=== PATIENT | female | born 1980 | race Hispanic/Latino ===

== ENCOUNTER 2017-05-30 08:15 | Emergency (ER) | payer MEDICAID, OTHER ==
[~2017-05-30 08:15] MED LIST: ACET1TAB12 PO; CEPH-578 PO; GLYB5TAB5 PO; METF500T3 PO
[2017-05-30 09:00] LABS: APPEARANCE,URINE Cloudy (CLEAR); BILIRUBIN,URINE Negative (NEGATIVE); COLOR,URINE Yellow (YELLOW); GLUCOSE, URINE (UA) >=1000 mg/dL (NEGATIVE); KETONES,URINE Negative (NEGATIVE); LEUKOCYTE ESTERASE ,URINE Negative (NEGATIVE); NITRATE,URINE Negative (NEGATIVE); OCCULT BLOOD,URINE Small (NEGATIVE); PH,URINE 5.5 (5.0-8.0); PROTEIN,URINE 300 (NEGATIVE); UROBILINOGEN,URINE 0.2 mg/dL (0.2-1.0)
[2017-05-30 09:02] LABS: HCG,QUAL RESULT NEGATIVE (NEGATIVE)
[2017-05-30 09:07] LABS: AMPHET/METH SCREEN,URINE NEGATIVE (NEGATIVE); BARBITURATE SCREEN, URINE NEGATIVE (NEGATIVE); BENZODIAZEPINES SCREEN,URINE NEGATIVE (NEGATIVE); CANNABINOID SCREEN,URINE NEGATIVE (NEGATIVE); COCAINE SCREEN,URINE NEGATIVE (NEGATIVE); OPIATE SCREEN,URINE NEGATIVE (NEGATIVE); PHENCYCLIDINE SCREEN,URINE NEGATIVE (NEGATIVE)
[2017-05-30 09:18] LABS: BACTERIA,URINE Rare /HPF (None Seen); SQUAMOUS EPITHELIAL CELL,UR Rare /HPF (0-2); WBC,URINE 0-1 /HPF (0-1)
[2017-05-30] MEDS ORDERED: SODIUM CHLORIDE 0.9% 1000ML 1,000 ML IV ONE ×2 (09:26→11:16)
[2017-05-30] MEDS ORDERED: INSULIN HUMULIN R 100 UNIT/ML 3ML ONE ×2 (09:27→11:17)
[2017-05-30 09:30] LABS: BASOPHILS % (AUTO) 0.5 % (0.0-5.0); EOSINOPHILS % (AUTO) 0.8 % (0.0-8.0); HEMATOCRIT 37.9 % (36-48); MEAN CORPUSCULAR HEMOGLOBIN 31.2 pg (27.0-33.0); MEAN CORPUSCULAR HGB CONC 36.1 g/dL (32.0-36.0); MEAN CORPUSCULAR VOLUME 86.5 fL (79-99); MONOCYTES % (AUTO) 6.2 % (3.0-13.0); NEUTROPHILS % (AUTO) 69.5 % (40.0-77.0); PLATELET COUNT (AUTO) 212 K/uL (130-400); RED BLOOD CELL COUNT(AUTO) 4.38 MIL/uL (4.00-5.50); RED CELL DISTRIBUTION WIDTH 12.8 % (11.0-15.5); WHITE BLOOD COUNT (AUTO) 9.6 K/uL (4.8-10.8)
[2017-05-30 09:58] LABS: ALBUMIN 3.4 g/dL (3.5-5.0); BILIRUBIN,TOTAL 0.7 mg/dL (0.2-1.0); CREATININE 1.4 mg/dL (0.5-1.5); POTASSIUM 4.3 mmol/L (3.5-5.1); TOTAL PROTEIN, SERUM 8.1 g/dL (6.0-8.3)
== END 2017-05-30 11:47 | disposition home or self-care (01) ==
LOC: EDH 08:15
DX: G40.802 Other epilepsy, not intractable, without status epilepticus (principal); E11.65 Type 2 diabetes mellitus with hyperglycemia; S00.83XA Contusion of other part of head, initial encounter; Z88.0 Allergy status to penicillin; Z79.899 Other long term (current) drug therapy; Z79.4 Long term (current) use of insulin; X58.XXXA Exposure to other specified factors, initial encounter; Y93.89 Activity, other specified; Y92.89 Other specified places as the place of occurrence of the external cause; Y99.8 Other external cause status
CPT/HCPCS: 36415; 80053; 80305; 81001; 81025; 82948 ×2; 85025; 96361; 96374; 96376; 99285; J1815 ×2; J7030 ×2

== ENCOUNTER 2017-07-27 14:32 | Emergency (ER) | payer OTHER ==
[2017-07-27 15:11] LABS: APPEARANCE,URINE Cloudy (CLEAR); BILIRUBIN,URINE Negative (NEGATIVE); COLOR,URINE Yellow (YELLOW); GLUCOSE, URINE (UA) >=1000 mg/dL (NEGATIVE); KETONES,URINE Negative (NEGATIVE); LEUKOCYTE ESTERASE ,URINE Small (NEGATIVE); NITRATE,URINE Negative (NEGATIVE); OCCULT BLOOD,URINE Small (NEGATIVE); PROTEIN,URINE POS 2+ (NEGATIVE); UROBILINOGEN,URINE 0.2 mg/dL (0.2-1.0)
[2017-07-27 15:14] LABS: HCG,QUAL RESULT NEGATIVE (NEGATIVE)
[2017-07-27 15:23] LABS: COARSE GRANULAR CASTS,URINE 0-2 /LPF (None Seen)
[2017-07-27 15:24] LABS: BACTERIA,URINE Few /HPF (None Seen); RBC,URINE None Seen /HPF (0-1)
== END 2017-07-27 15:53 | disposition home or self-care (01) ==
LOC: EDH 14:32
DX: B37.3 Candidiasis of vulva and vagina (principal); N39.0 Urinary tract infection, site not specified; E11.9 Type 2 diabetes mellitus without complications; Z88.0 Allergy status to penicillin; Z79.899 Other long term (current) drug therapy
CPT/HCPCS: 81001; 81025; 87486; 87797

== ENCOUNTER 2017-08-05 13:11 | Emergency (ER) | payer OTHER ==
[2017-08-05 13:43] LABS: BASOPHILS % (AUTO) 0.5 % (0.0-5.0); EOSINOPHILS % (AUTO) 0.3 % (0.0-8.0); HEMATOCRIT 33.9 % (36-48); LYMPHOCYTES % (AUTO) 14.6 % (21.0-51.0); MEAN CORPUSCULAR HEMOGLOBIN 29.6 pg (27.0-33.0); MEAN CORPUSCULAR HGB CONC 35.4 g/dL (32.0-36.0); MEAN CORPUSCULAR VOLUME 83.5 fL (79-99); MONOCYTES % (AUTO) 5.2 % (3.0-13.0); NEUTROPHILS % (AUTO) 79.4 % (40.0-77.0); PLATELET COUNT (AUTO) 230 K/uL (130-400); RED BLOOD CELL COUNT(AUTO) 4.05 MIL/uL (4.00-5.50); RED CELL DISTRIBUTION WIDTH 13.1 % (11.0-15.5); WHITE BLOOD COUNT (AUTO) 11.5 K/uL (4.8-10.8)
[2017-08-05 13:49] LABS: APPEARANCE,URINE Turbid (CLEAR); BILIRUBIN,URINE Negative (NEGATIVE); COLOR,URINE Yellow (YELLOW); GLUCOSE, URINE (UA) >=1000 mg/dL (NEGATIVE); KETONES,URINE Negative (NEGATIVE); LEUKOCYTE ESTERASE ,URINE Moderate (NEGATIVE); NITRATE,URINE Positive (NEGATIVE); OCCULT BLOOD,URINE Moderate (NEGATIVE); PH,URINE 5.5 (5.0-8.0); PROTEIN,URINE 300 (NEGATIVE)
[2017-08-05 13:56] LABS: HCG,QUAL RESULT NEGATIVE (NEGATIVE)
[2017-08-05 14:01] LABS: ALBUMIN 2.8 g/dL (3.5-5.0); BILIRUBIN,TOTAL 0.6 mg/dL (0.2-1.0); CREATININE 1.8 mg/dL (0.5-1.5); TOTAL PROTEIN, SERUM 7.2 g/dL (6.0-8.3)
[2017-08-05 14:06] LABS: BACTERIA,URINE Few /HPF (None Seen); WBC,URINE >100 /HPF (0-1)
[2017-08-05] MEDS ORDERED: SODIUM CHLORIDE 0.9% 50 ML IV ONE (14:19)
[2017-08-05] MEDS ORDERED: CEFTRIAXONE SODIUM 1 GM ONE (14:19)
[2017-08-05] MEDS ORDERED: SODIUM CHLORIDE 0.9% 1000ML 2,000 ML IV ONE (14:19)
[2017-08-05 14:42] LABS: AMPHET/METH SCREEN,URINE NEGATIVE (NEGATIVE); BARBITURATE SCREEN, URINE NEGATIVE (NEGATIVE); BENZODIAZEPINES SCREEN,URINE NEGATIVE (NEGATIVE); CANNABINOID SCREEN,URINE NEGATIVE (NEGATIVE); COCAINE SCREEN,URINE NEGATIVE (NEGATIVE); OPIATE SCREEN,URINE NEGATIVE (NEGATIVE); PHENCYCLIDINE SCREEN,URINE NEGATIVE (NEGATIVE)
[2017-08-05] MEDS ORDERED: ACETAMINOPHEN EXTRA STRENGTH 500 MG TABLET ONE (14:59)
[2017-08-05] MEDS ORDERED: ONDANSETRON HCL 4 MG/2 ML VIAL ONE (14:59)
[2017-08-05] MEDS ORDERED: HYDROXYZINE HCL 25 MG TABLET ONE (15:37)
== END 2017-08-05 16:26 | disposition left against medical advice (07) ==
LOC: EDH 13:11
DX: N12 Tubulo-interstitial nephritis, not specified as acute or chronic (principal); N28.9 Disorder of kidney and ureter, unspecified; E11.9 Type 2 diabetes mellitus without complications; R03.0 Elevated blood-pressure reading, without diagnosis of hypertension; F41.9 Anxiety disorder, unspecified; Z88.0 Allergy status to penicillin
CPT/HCPCS: 36415; 80053; 80305; 81001; 81025; 82948; 85025; 87088; 87186; 96374; 96375; 99285; J0696; J2405; J7030

== ENCOUNTER 2017-12-01 14:41 | Emergency (ER) | payer MEDICAID ==
[~2017-12-01 14:41] MED LIST changes: -ACET1TAB12 PO; +AMLO5TAB7 PO; -CEPH-578 PO; +HYDR25TA PO; +LEVE1000 PO; +LEVO100T12 PO; +NAPR-1023 PO
== END 2017-12-01 15:18 | disposition left against medical advice (07) ==
LOC: EDH 14:41
DX: R07.81 Pleurodynia (principal); F41.9 Anxiety disorder, unspecified; F32.9 Major depressive disorder, single episode, unspecified; I12.0 Hypertensive chronic kidney disease with stage 5 chronic kidney disease or end stage renal disease; E11.22 Type 2 diabetes mellitus with diabetic chronic kidney disease; N18.6 End stage renal disease; Z53.21 Procedure and treatment not carried out due to patient leaving prior to being seen by health care provider; Z88.0 Allergy status to penicillin; W18.39XA Other fall on same level, initial encounter; Y93.89 Activity, other specified; Y92.89 Other specified places as the place of occurrence of the external cause; Y99.8 Other external cause status

== ENCOUNTER 2018-06-29 10:30 | Day surgery (SDC) | payer MEDICAID ==
[2018-06-28 16:55] VITALS: BP 191/107
[2018-06-28 17:45] VITALS: BP 160/99
--- NOTE | 2018-06-28 17:45 | NUR ---
PAIN PT STATES SHE HAS PAIN SCALE OF 6 TO NEPHROSTOMY TUBE SITE, LEFT FLANK AREA. STATES SHE TAKE HYDROCODONE FOR IT. RECOMMENDED FOR PT TO SEEK MEDICAL ATTENTION SUCH E.R IF SEVERE OR SEE PCP. PER PT, SHE WILL ACTUALLY CALL DR. ANDERSEN RIGHT AFTER PREOP INSTRUCTED, MD WILL STILL BE IN OFFICE UNTIL 630.
[2018-06-28 17:50] LABS: BASOPHILS % (AUTO) 1.1 % (0.0-5.0); EOSINOPHILS % (AUTO) 2.2 % (0.0-8.0); HEMATOCRIT 27.3 % (36-48); LYMPHOCYTES % (AUTO) 24.5 % (21.0-51.0); MEAN CORPUSCULAR HEMOGLOBIN 26.7 pg (27.0-33.0); MEAN CORPUSCULAR HGB CONC 32.9 g/dL (32.0-36.0); MEAN CORPUSCULAR VOLUME 81.2 fL (79-99); MONOCYTES % (AUTO) 6.1 % (3.0-13.0); NEUTROPHILS % (AUTO) 66.1 % (40.0-77.0); PLATELET COUNT (AUTO) 327 K/uL (130-400); RED BLOOD CELL COUNT(AUTO) 3.36 MIL/uL (4.00-5.50); RED CELL DISTRIBUTION WIDTH 15.9 % (11.0-15.5); WHITE BLOOD COUNT (AUTO) 8.9 K/uL (4.8-10.8)
--- NOTE | 2018-06-28 18:30 | NUR ---
ABNORMAL LABS REPORTED ABNORMAL LABS TO DR. WEEKS BUN 52, CREAT 4.0, HGB 90., HCT 27.3. NO FURTHER ORDERS GIVEN, MAY PROCEED WITH PLANNED PROCEDURE. Addendum: 06/28/18 at 1850 by VICKY ROCHA RN RN ABOVE ABNORMAL LABS ALSO REPORTED TO DR. SCHROEDER, NO FURTHER ORDERS GIVEN.
[2018-06-29] VITALS (17 sets, daily range): BP systolic 124–184; BP diastolic 70–103
[~2018-06-29] VITALS: Ht 160 cm; Wt 87.6 kg
[~2018-06-29 10:30] MED LIST changes: -AMLO5TAB7 PO; +AMLO5TAB9 PO
[2018-06-29] MEDS ORDERED: SODIUM CHLORIDE 0.9% 1000ML 1,000 ML IV ONE (12:11)
[2018-06-29] MEDS ORDERED: LEVOFLOXACIN 500 MG/D5W 100 ML 100 ML ONE (12:27)
[2018-06-29] MEDS ORDERED: CEPH500C2 PO (12:30)
[2018-06-29] MEDS ORDERED: HYDR-4060 PO (12:30)
[2018-06-29] MEDS ORDERED: GABA-529 PO (12:30)
[2018-06-29] MEDS ORDERED: SODI325T PO (12:30)
[2018-06-29] MEDS ORDERED: INSU100V12 SQ ×2 (12:30)
[2018-06-29] MEDS ORDERED: FURO40TA5 PO (12:30)
[2018-06-29] MEDS ORDERED: LIDOCAINE PF 2% 5ML ABBOJECT ONE (13:40)
[2018-06-29] MEDS ORDERED: SUCCINYLCHOLINE 200MG/10ML SYR ONE (13:40)
[2018-06-29] MEDS ORDERED: PROPOFOL 10 MG/ML 20ML VIAL IV ONE (13:40)
[2018-06-29] MEDS ORDERED: DEXAMETHASONE SOD PHOSPHATE 10MG/ML 1ML VIAL ONE (13:41)
[2018-06-29] MEDS ORDERED: GLYCOPYRROLATE 1 MG/5 ML SYRINGE ONE (13:41)
[2018-06-29] MEDS ORDERED: MIDAZOLAM HCL 1 MG/ML 2ML VIAL ONE (13:41)
[2018-06-29] MEDS ORDERED: ROCURONIUM 10MG/1ML SYR 10 MG/ML ML ONE (13:41)
[2018-06-29] MEDS ORDERED: NEOSTIGMINE 5MG/5ML SYR IV ONE (13:41)
[2018-06-29] MEDS ORDERED: ONDANSETRON HCL 4 MG/2 ML VIAL ONE (13:41)
[2018-06-29] MEDS ORDERED: FENTANYL CITRATE PF 50 MCG/1 ML 2ML VIAL ONE ×2 (13:43→15:01)
[2018-06-29] MEDS ORDERED: BACITRACIN 50,000 UNIT VIAL ONE (14:16)
[2018-06-29] MEDS ORDERED: BACITRACIN 28.4 GM OINT TP ONE (14:27)
[2018-06-29] MEDS ORDERED: MORPHINE SULFATE 4 MG/1ML SYG ONE (15:14)
[2018-06-29] MEDS ORDERED: MEPERIDINE-PF 25 MG/ML SYG ONE (15:28)
--- NOTE | 2018-06-29 15:55 | NUR ---
POST OP RECEIVED PT FROM PACU, S/P I&D TO RIGHT GROIN ABSCESS, DRESSING TO SITE DRY AND INTACT, LEFT NEPHROSTOMY TUBE IN PLACE DRAINING CLEAR YELLOW URINE, DRESSING TO SITE DRY AND INTACT, PT AWAKE AND ALERT, VS STABLE ON ARRIVAL. PLAN OF CARE DISCUSS WITH PT/ SPOUSE,
--- NOTE | 2018-06-29 16:25 | NUR ---
DC DC INSTRUCTIONS GIVEN TO PT SPOUSE WITH RX, INSTRUCTED TO F/U WITH MD. TO CONTINUE HOME MEDS, AND REMOVE DRESSING TO RIGHT GROIN IN 2 DAYS AND APPLY ANTIBIOTIC OINTMENT TO INCISION DAILY, INSTRUCTED ON NEW MED PRESCRIBED AND POSSIBLE SIDE EFFECTS. PIV REMOVED , SITE ASYMPTOMATIC, CATHETER INTACT.
--- NOTE | 2018-06-29 16:40 | NUR ---
dc pt dc home via wc, no distress noted. denies any pain or discomforts. accompanied by spouse
[2018-06-30] MEDS ORDERED: LEVOFLOXACIN 500 MG/D5W 100 ML 100 ML IV ONE (12:45)
== END 2018-06-29 16:40 | disposition home or self-care (01) ==
LOC: DAH 10:30
PROVIDERS: ATTEND Surgery
DX: L02.214 Cutaneous abscess of groin (principal); E65 Localized adiposity; G40.909 Epilepsy, unspecified, not intractable, without status epilepticus; E66.9 Obesity, unspecified; I12.9 Hypertensive chronic kidney disease with stage 1 through stage 4 chronic kidney disease, or unspecified chronic kidney disease; E11.22 Type 2 diabetes mellitus with diabetic chronic kidney disease; N18.2 Chronic kidney disease, stage 2 (mild); Z68.36 Body mass index [BMI] 36.0-36.9, adult; Z88.0 Allergy status to penicillin; Z79.4 Long term (current) use of insulin; Z79.899 Other long term (current) drug therapy
CPT/HCPCS: 10060; 17999; 36415; 80048; 82948 ×2; 84703; 85025; 87070; 87076; 87077; 87186; 87205; 88304; A4452; A4600; J0330; J1100; J1956; J2001; J2175; J2250; J2270; J2405; J2704; J2710; J3010 ×2; J3490; J7030

== ENCOUNTER 2019-05-23 15:25 | Inpatient (IN) | payer MEDICARE ==
[~2019-05-23] VITALS: Ht 160 cm; Wt 85.9 kg
[~2019-05-23 15:25] MED LIST changes: -AMLO5TAB9 PO; +CEPH500C2 PO; +FURO40TA5 PO; +GABA-529 PO; -GLYB5TAB5 PO; +HYDR-4060 PO; -HYDR25TA PO; +INSU100V12 SQ; -LEVE1000 PO; -LEVO100T12 PO; -METF500T3 PO; -NAPR-1023 PO; +SODI325T PO
[2019-05-23] MEDS ORDERED: MEROPENEM 1 GM VIAL ONE (16:31)
[2019-05-23 16:32] LABS: BASOPHILS % (AUTO) 0.4 % (0.0-5.0); EOSINOPHILS % (AUTO) 0.4 % (0.0-8.0); HEMATOCRIT 32.6 % (36-48); MEAN CORPUSCULAR HEMOGLOBIN 28.2 pg (27.0-33.0); MEAN CORPUSCULAR HGB CONC 33.1 g/dL (32.0-36.0); MEAN CORPUSCULAR VOLUME 85.1 fL (79-99); MONOCYTES % (AUTO) 11.9 % (3.0-13.0); NEUTROPHILS % (AUTO) 70.4 % (40.0-77.0); NUCLEATED RED BLOOD CELLS 0.7 % (0.0-0.19); PLATELET COUNT (AUTO) 236 K/uL (130-400); RED BLOOD CELL COUNT(AUTO) 3.83 MIL/uL (4.00-5.50); RED CELL DISTRIBUTION WIDTH 15.7 % (11.0-15.5); WHITE BLOOD COUNT (AUTO) 18.3 K/uL (4.8-10.8)
[2019-05-23] MEDS ORDERED: MORPHINE SULFATE 4 MG/1ML SYG ONE (16:32)
[2019-05-23] MEDS ORDERED: ONDANSETRON HCL 4 MG/2 ML VIAL ONE (16:32)
[2019-05-23 16:45] LABS: PARTIAL THROMBOPLASTIN TIME 33.8 SEC (26.3-35.5)
[2019-05-23 16:58] LABS: ALBUMIN 2.5 g/dL (3.5-5.0); BILIRUBIN,TOTAL 2.2 mg/dL (0.2-1.0); CREATININE 4.8 mg/dL (0.5-1.5); INR 1.5 (0.85-1.15); PROTHROMBIN TIME 15.9 SEC (9.6-11.6); TOTAL PROTEIN, SERUM 7.7 g/dL (6.0-8.3); TROPONIN I 0.33 ng/mL (0.00-0.06)
[2019-05-23] MEDS ORDERED: VANCOMYCIN 1GM+NS 250ML 250 ML IV ONE (16:59)
[2019-05-23] MEDS ORDERED: ONDANSETRON HCL 4 MG/2 ML VIAL IV PRN (19:15)
[2019-05-23] MEDS ORDERED: MORPHINE SULFATE 2 MG/ML 1ML SYG IVP PRN (19:30)
[2019-05-23] MEDS ORDERED: VANCOMYCIN PROTOCOL PER PHARMACY IV SCH (19:30)
[2019-05-23] MEDS: MEROPENEM 1 GM VIAL IVP SCH (19:30)
[2019-05-23] MEDS ORDERED: GLUCAGON 1MG KIT 1 MG ML IM PRN (19:45)
[2019-05-23] MEDS ORDERED: DEXTROSE 50%-WATER 50 ML DISP.SYRIN IV PRN (19:45)
[2019-05-23] MEDS: INSULIN HUMULIN R 100 UNIT/ML 3ML SQ SCH (21:00)
[2019-05-23] MEDS ORDERED: FAMOTIDINE/PF 20 MG/2 ML VIAL IV ONE (22:01)
[2019-05-23] MEDS: HEPARIN SODIUM 5000UNIT/ML 1ML VIAL SQ SCH (22:15)
[2019-05-24] VITALS (7 sets, daily range): BP systolic 129–183; BP diastolic 63–109
[2019-05-24 03:49] LABS: APPEARANCE,URINE TURBID (CLEAR); BILIRUBIN,URINE SMALL (NEGATIVE); COLOR,URINE GREEN (YELLOW); GLUCOSE, URINE (UA) 100 mg/dL (NEGATIVE); KETONES,URINE NEGATIVE (NEGATIVE); LEUKOCYTE ESTERASE ,URINE MODERATE (NEGATIVE); NITRATE,URINE NEGATIVE (NEGATIVE); OCCULT BLOOD,URINE MODERATE (NEGATIVE); PH,URINE 6.5 (5.0-8.0); PROTEIN,URINE >=300 mg/dL (NEGATIVE); UROBILINOGEN,URINE 0.2 mg/dL (0.2-1.0)
[2019-05-24 04:07] LABS: BACTERIA,URINE Many /HPF (None Seen); WBC,URINE Full Field /HPF (0-1)
[2019-05-24] MEDS ORDERED: HYDROMORPHONE HCL 2 MG/ML VIAL ONE (04:10)
[2019-05-24] MEDS: INSULIN HUMULIN R 100 UNIT/ML 3ML SQ SCH ×4 (06:07→20:38)
[2019-05-24 06:44] LABS: BASOPHILS % (AUTO) 0.4 % (0.0-5.0); EOSINOPHILS % (AUTO) 1.7 % (0.0-8.0); HEMATOCRIT 35.4 % (36-48); LYMPHOCYTES % (AUTO) 15.9 % (21.0-51.0); MEAN CORPUSCULAR HEMOGLOBIN 27.3 pg (27.0-33.0); MEAN CORPUSCULAR HGB CONC 31.4 g/dL (32.0-36.0); MONOCYTES % (AUTO) 10.1 % (3.0-13.0); NEUTROPHILS % (AUTO) 70.6 % (40.0-77.0); NUCLEATED RED BLOOD CELLS 0.7 % (0.0-0.19); PLATELET COUNT (AUTO) 215 K/uL (130-400); RED BLOOD CELL COUNT(AUTO) 4.07 MIL/uL (4.00-5.50); RED CELL DISTRIBUTION WIDTH 16.4 % (11.0-15.5)
[2019-05-24 07:12] LABS: ALBUMIN 2.3 g/dL (3.5-5.0); BILIRUBIN,DIRECT 1.5 mg/dL (0.0-0.3); BILIRUBIN,TOTAL 2.1 mg/dL (0.2-1.0); CREATININE 4.7 mg/dL (0.5-1.5); POTASSIUM 3.3 mmol/L (3.5-5.1); TOTAL PROTEIN, SERUM 7.5 g/dL (6.0-8.3); TROPONIN I 0.17 ng/mL (0.00-0.06)
[2019-05-24 07:41] LABS: HEMOGLOBIN A1C 7.5 % (4.0-6.0)
--- NOTE | 2019-05-24 09:55 | NUR ---
PT BEING DIALYZED CONSENT OBTAINED.
[2019-05-24] MEDS ORDERED: SODIUM CHLORIDE 0.9% 1000ML 1,000 ML IV PRN (10:00)
[2019-05-24] MEDS ORDERED: ACETAMINOPHEN 325 MG TAB PO PRN (10:00)
[2019-05-24] MEDS ORDERED: 0.9% SODIUM CHLORIDE 1000 ML IV BAG IV PRN (10:00)
[2019-05-24] MEDS ORDERED: HEPARIN SODIUM 5000UNIT/ML 1ML VIAL IJ PRN ×2 (10:00)
[2019-05-24] MEDS ORDERED: NITROGLYCERIN 0.4 MG SL TAB SL PRN (10:00)
[2019-05-24] MEDS: HYDRALAZINE HCL 20 MG/ML VIAL IV PRN (11:28)
[2019-05-24] MEDS: FAMOTIDINE/PF 20 MG/2 ML VIAL IV SCH (11:33)
[2019-05-24] MEDS: MEROPENEM 1 GM VIAL IVP SCH ×2 (11:33→20:50)
--- NOTE | 2019-05-24 12:05 | NUR ---
CALLED DR. EVANS LEFT VOICEMAIL RE; LEFT NECROTIC FOOT/ CELLULITIS.
--- NOTE | 2019-05-24 13:00 | NUR ---
DR. EVANS CALLED BACK ORDERS ENTERED
[2019-05-24] MEDS: HYDROMORPHONE HCL 2 MG/ML VIAL IVP PRN ×2 (13:24→14:45)
--- NOTE | 2019-05-24 13:30 | NUR ---
DR. CARLOTA ROSS PAGED RE; IF INTERESTED IN TAKING CASE. SINCE HE WAS CONS[place] [facility] [place]FORE [place]IENT LEFT AMA. PENDING CALL BACK.
--- NOTE | 2019-05-24 13:35 | NUR ---
DR. TORRES PAGED RE; PT REFUSING TX PAGED, PENDING CALL BACK.
[2019-05-24] MEDS: HEPARIN SODIUM 5000UNIT/ML 1ML VIAL SQ SCH ×2 (14:55→20:51)
--- NOTE | 2019-05-24 15:53 | NUR ---
INITIAL SW spoke with patient's mother, Chata Rosenthal, [phone]. Patient lives with mother. No home health but does have PHC with [facility] X 21 hours a week. Patient's sister is provider. Dialysis: MWF at 2pm at [facility]. DME: wheelchair, walker, shower chair. Patient needs help with ADL's and does not drive. Sister help with transportation to and from dialysis and MD appts. PCP is Dr. Misael Chirinos. Pharmacy is [facility] [address] in [place]. DCP is home. Addendum: 05/24/19 at 1556 by KIN APARICIO Amended: Links added.
--- NOTE | 2019-05-24 17:30 | NUR ---
TEMP OF 101.4, DR. SEPULVEDA AWARE B/C X2. ORDERED.
--- NOTE | 2019-05-24 18:00 | NUR ---
DR. VAN CALLED BACK ORDERS ENTERED. STATES IF PATIENT REFUSES CT ANGIO OF [place]IT[place] LOWER EXTRE. IF REFUSES I WILL NOT SEE PT.
--- NOTE | 2019-05-24 19:30 | NUR ---
SPOKE TO EXTERMINATOR HELPER REGARDING LDR NURSE ORDER FOR CT ANGIOGRAM TO BLE. PER EXTERMINATOR HELPER, RADIOLOGIST STATES THAT SHOULD BE PREFORMED WITHIN 24 PRIOR TO NEXT SCHEDULED HD. PT NEXT HD DATE IS MONDAY. DR. ROSS PAGED AT THIS TIME. WAITING FOR CALL BACK.
[2019-05-24] MEDS: KETOROLAC TROMETHAMINE 15MG/ML IV PRN (21:06)
[2019-05-25] MEDS: KETOROLAC TROMETHAMINE 15MG/ML IV PRN ×3 (03:12→21:47)
[2019-05-25 03:55] VITALS: BP 149/72
[2019-05-25] MEDS: INSULIN HUMULIN R 100 UNIT/ML 3ML SQ SCH ×4 (06:57→21:00)
[2019-05-25 08:00] VITALS: BP 169/101
[2019-05-25 08:10] LABS: HEPATITIS A ANTIBODY IGM Negative (Negative); HEPATITIS B CORE IGM Negative (Negative); HEPATITIS Bs ANTIGEN SCREEN P Negative (Negative)
[2019-05-25] MEDS: HYDRALAZINE HCL 20 MG/ML VIAL IV PRN (09:03)
[2019-05-25] MEDS: FAMOTIDINE/PF 20 MG/2 ML VIAL IV SCH (09:03)
[2019-05-25] MEDS: MEROPENEM 1 GM VIAL IVP SCH ×2 (09:03→21:01)
[2019-05-25 11:00] VITALS: BP 178/97
[2019-05-25] MEDS: HEPARIN SODIUM 5000UNIT/ML 1ML VIAL SQ SCH ×2 (11:10→21:27)
--- NOTE | 2019-05-25 12:00 | NUR ---
Dr. Campbell in patient room, Doing Wound Care as per Dr. campbell he will be rounding on patient to do daily wound care.
--- NOTE | 2019-05-25 13:00 | NUR ---
CT angio will be scheduled Monday as per radiologist as he recommends doing angio hour prior to dialysis on Monday.
[2019-05-25] MEDS ORDERED: VANCOMYCIN 1GM+NS 250ML 250 ML IV SCH (17:00)
[2019-05-25 18:00] VITALS: BP 150/90
[2019-05-25 20:00] VITALS: BP 158/74
[2019-05-25 23:34] VITALS: BP 167/104
--- NOTE | 2019-05-26 04:04 | NUR ---
Patient alert and oriented. No signs of chest pain or respiratory distress. Patient did c/o pain to foot, medicated with ordered pain med. Relief noted. Showered several times throughout the night. Patient is not actually showering each time. She is removing foot dressing and washing out wound for several minutes. She has changed her own foot dressing 3x. Toes black and necroti. Wound on foot yellow slough with visible tendon. She has changed the dressing on her thigh 2x. Post I & D. Patient is impulsive and does not wait to be helped to bathroom. Patient does have a sitter Will continue to monitor.
[2019-05-26 04:21] VITALS: BP 161/93
[2019-05-26] MEDS: KETOROLAC TROMETHAMINE 15MG/ML IV PRN ×2 (04:26→11:06)
[2019-05-26] MEDS: INSULIN HUMULIN R 100 UNIT/ML 3ML SQ SCH ×4 (05:09→23:13)
[2019-05-26 08:00] VITALS: BP 166/86
--- NOTE | 2019-05-26 08:00 | NUR ---
ASSESSMENT ENCOUNTERED PT A&OX3, AMBULATING TO BATHROOM FOR SHOWER AND BACK TO BED, PT STATES SHE CAN DO HER OWN DRESSINGS, INFORMED PT THAT SUPPLIES WILL BE GIVEN TO HER TO DO HER OWN DRESSING CHANGE HER PER REQUEST BUT THAT TO PLEASE REFRAIN FROM TAKING ADDITIONAL UNNECESSARY SHOWERS BECAUSE SUPPLIES ARE LIMITED FOR RE-DRESSING FOOT. PT DOES C/O PAIN TO LEFT FOOT, NECROSIS PRESENT. CALL LIGHT WITHIN REACH, SITTER AT BEDSIDE.
[2019-05-26] MEDS: MEROPENEM 1 GM VIAL IVP SCH ×2 (11:06→21:21)
[2019-05-26] MEDS: HEPARIN SODIUM 5000UNIT/ML 1ML VIAL SQ SCH ×2 (11:07→21:35)
[2019-05-26] MEDS: FAMOTIDINE/PF 20 MG/2 ML VIAL IV SCH (11:08)
[2019-05-26 11:54] VITALS: BP 160/81
[2019-05-26 16:00] VITALS: BP 165/103
--- NOTE | 2019-05-26 17:00 | NUR ---
PT PULLED OUT IV PT ASKING FOR PAIN MEDICATION BUT SHE PULLED OUT IV WHEN SHE GAVE HERSELF SHOWER, PT REDRESSED LEFT FOOT WITH REMAINING SUPPLIES. INFORMED PT THAT NEW IV HAD TO BE INSERTED AND PT BEGAN CRYING. PT ALSO CRYING BECAUSE OUTSIDE FOOD NOR VISITATION WAS PERMITTED PER HOSPITAL AND MD POLICY DUE TO HER DIAGNOSIS OF RENAL FAILURE AND ON HEMODIALYSIS DIET. PT STATED THAT SHE WANTED TO LEAVE AGAINST MEDICAL ADVICE, INFORMED HER THAT LEAVING WOULD INCREASED RISK FOR WORSENING RT LEG NECROSIS, SEPSIS, MYOCARDIAL INFARCTION, STROKE AND . SHE STATED SHE WOULD STAY AND THINK ABOUT IT AND TALK IT OVER WITH HER MOTHER. CALL LIGHT WITHIN REACH, SITTER AT BEDSIDE.
[2019-05-26] MEDS ORDERED: MEROPENEM 1 GM VIAL IVP SCH (20:00)
[2019-05-26 20:54] VITALS: BP 158/93
[2019-05-26 23:37] VITALS: BP 174/98
--- NOTE | 2019-05-27 00:54 | NUR ---
PATIENT IRRITABLE. FALLING ASLEEP WHILE SITTING AT BEDSIDE. ALERT TO NAME, , LOCATION. PATIENT IS NOT MAKING SENSE WHEN SHE SPEAKS. RAMBLING OF DIFFERENT THINGS SUCH MONEY, MCDONALDS, RANDOM PEOPLE IN ROOM. PATIENT REMOVED TELE MONITOR(REFUSING),WOUND DRESSINGS, AND IV. PATIENT BLEEDING FROM R WRIST DUE TO REMOVAL OF IV. REFUSING NEW IV. SITTER PRESENT. WILL CONTINUE TO MONITOR.
--- NOTE | 2019-05-27 03:00 | NUR ---
PATIENT SIGNED REFUSAL TO TREAT FORM. SHE IS REFUSING TELEMETRY, DRESSING CHANGES,AND IV.
[2019-05-27 03:43] VITALS: BP 168/99
[2019-05-27] MEDS: KETOROLAC TROMETHAMINE 15MG/ML IV PRN ×2 (04:23→20:57)
[2019-05-27] MEDS: INSULIN HUMULIN R 100 UNIT/ML 3ML SQ SCH ×4 (05:31→20:43)
[2019-05-27] MEDS: HYDRALAZINE HCL 20 MG/ML VIAL IV PRN (05:31)
[2019-05-27] MEDS: FAMOTIDINE/PF 20 MG/2 ML VIAL IV SCH (09:39)
[2019-05-27] MEDS: MEROPENEM 1 GM VIAL IVP SCH ×2 (09:39→20:57)
[2019-05-27] MEDS: HEPARIN SODIUM 5000UNIT/ML 1ML VIAL SQ SCH ×2 (10:15→21:14)
[2019-05-27] MEDS ORDERED: IOHEXOL 350 MG/ML 100ML INFUS..BTL IV ONE (11:40)
--- NOTE | 2019-05-27 15:30 | NUR ---
PAGED DR. ROSS TO NOTIFY HIM OF THE RESULT OF THE CT ANGIO RUN OFF. WILL WAIT FOR THE CALL BACK.
[2019-05-27] MEDS ORDERED: LORAZEPAM 2 MG/ML 1 ML VIAL IVP PRN (17:45)
--- NOTE | 2019-05-27 18:45 | NUR ---
CALL DR. ROSS AT HIS CELLPHONE AT THIS TIME. NO ANSWER.
--- NOTE | 2019-05-27 19:45 | NUR ---
HD REPORT RECEIVED FROM OUTGOING NURSE MIKE HESS. PT WANTING HER XANAX BUT EXPLAINED THAT MD HAD ORDERED ATIVAN IV AND UNABLE TO BE MEDICATED AT THIS TIME DUE TO ONGOING HD TREATMENT. HD NURSE MADE AWARE. Addendum: 05/28/19 at 0148 by ZAKIYA RIGGS RN RN Amended: Links added.
[2019-05-27 20:00] VITALS: BP 157/85
--- NOTE | 2019-05-27 20:40 | NUR ---
HD HD NURSE INFORMS CORPORATE OFFICER THAT PT IS WANTING OFF THE DIALYSIS TREATMENT AND PT IS ONLY HALF WAY THROUGH THE REQUIRED HOURS OF TREATMENT. PAGED DR KRISTINA LARES VIA ANSWERING SERVICE, AWAITING CALL BACK.
--- NOTE | 2019-05-27 20:53 | NUR ---
HD NURSE MADE SHEET WRITER AWARE THAT PT IS ALREADY OFF HD. DR KRISTINA HENDERSON CALLED BACK AND INFORMED THAT PT REFUSED TO FINISH HD TREATMENT AND WAS ONLY DIALIZED ONE HOUR AND 30 MINS WITHOUT ANY OUTPUT TAKEN OUT. NO ORDERS GIVEN AT THIS TIME, STATED SHE WILL SEE PT IN AM.
--- NOTE | 2019-05-27 21:00 | NUR ---
MEDS PT SEEN WALKING IN THE ROOM. ASSISTED BACK IN BED AND ASKED TO STAY IN BED. DUE MEDS ADMINISTERED, TORADOL GIVEN FOR PAINS AND ATIVAN GIVEN FOR ANXIETY. PT TOLERATED WELL. POSITIONED COMFORTABLY IN BED AND ENCOURAGED TO REST AND SLEEP. Addendum: 05/28/19 at 0214 by ZAKIYA RIGGS RN RN Amended: Links added.
--- NOTE | 2019-05-27 23:00 | NUR ---
PIV PT AWAKENED AND PULLED OUT PIV WITH CATHETER INTACT. PT IS NOTED TO BE VERY CONFUSED. RE-INSERTED PIV G20 TO RFA, TOLERATED WELL. ASSISTED TO THE RESTROOM AND CHANGED SOILED GOWN AND LINEN. SITTER KEEPING WATCH AT THIS TIME. Addendum: 05/28/19 at 0224 by ZAKIYA RIGGS RN RN Amended: Links added.
[2019-05-28] VITALS: BP 157/92
--- NOTE | 2019-05-28 02:00 | NUR ---
ROUNDS PT RESTING WELL, FAIRLY ASLEEP WITH RESPIRATIONS EVEN AND UNLABORED. NO NOTED DISTRESS. KEPT UNDISTURBED FOR NOW. 2:1 SITTER BY PT'S DOOR KEEPING CLOSE WATCH.
[2019-05-28 04:00] VITALS: BP 157/89
--- NOTE | 2019-05-28 05:45 | NUR ---
SHOWER PT JUST HAD A SHOWER, TOLERATED ACTIVITY WELL. AGRICULTURE RESEARCH DIRECTOR IN TO DRAW BLOOD. CHANGED KERLIX WRAP AROUND PIV. ENCOURAGED TO REST AND SLEEP. PT WENT BACK TO BED. FOR MORE CARE.
[2019-05-28] MEDS: INSULIN HUMULIN R 100 UNIT/ML 3ML SQ SCH (05:48)
[2019-05-28 06:03] LABS: BASOPHILS % (AUTO) 0.7 % (0.0-5.0); EOSINOPHILS % (AUTO) 6.2 % (0.0-8.0); HEMATOCRIT 34.4 % (36-48); LYMPHOCYTES % (AUTO) 16.4 % (21.0-51.0); MEAN CORPUSCULAR HEMOGLOBIN 27.8 pg (27.0-33.0); MEAN CORPUSCULAR VOLUME 86.9 fL (79-99); MONOCYTES % (AUTO) 12.9 % (3.0-13.0); NEUTROPHILS % (AUTO) 63.2 % (40.0-77.0); NUCLEATED RED BLOOD CELLS 0.3 % (0.0-0.19); PLATELET COUNT (AUTO) 146 K/uL (130-400); RED BLOOD CELL COUNT(AUTO) 3.96 MIL/uL (4.00-5.50); RED CELL DISTRIBUTION WIDTH 17.4 % (11.0-15.5); WHITE BLOOD COUNT (AUTO) 10.6 K/uL (4.8-10.8)
[2019-05-28 06:43] LABS: CREATININE 5.7 mg/dL (0.5-1.5); CRP QUANTITATIVE 76.8 mg/L (0.00-9.0); POTASSIUM 3.8 mmol/L (3.5-5.1)
[2019-05-28 07:15] VITALS: BP 179/109
[2019-05-28 07:19] LABS: ERYTHROCYTE SEDIMENTATION RATE 62 MM/HR (0-20)
--- NOTE | 2019-05-28 08:32 | NUR ---
CONSULT CALLED DR TORRES'S OFFICE BUT IS CLOSED. TABLET TECHNICIAN THEN CALLED 'S CP AND WAS ABLE TO INFORM OF PENDING CONSULT. AGREED TO SEE PT AND STATED WILL COME SEE THE PT THIS PM.
--- NOTE | 2019-05-28 09:40 | NUR ---
PATIENT SAYS SHE IS LEAVING AMA BECAUSE SHE HAS TO GO PAY A TICKET; I ATTEMPTED TO TALK HER OUT OF IT, STRESSING IMPORTANCE OF RECEIVING IV ABX; I CALLED HER MOTHER AND HER MOTHER SAID THAT HER SISTER WAS ALREADY ON HER WAY TO PICK HER UP; I ALSO CALLED MELTER CASTER AND DR SEPULVEDA; DR SEPULVEDA STATED OK; IV ACCESS REMOVED.
== END 2019-05-28 09:35 | disposition left against medical advice (07) | DRG 871 ==
LOC: EDH 15:25 → EDHIP 15:26 → 4BH 05-24 01:56
PROVIDERS: ADMIT Hospitalist; ATTEND Hospitalist
PROC: 5A1D70Z Performance of Urinary Filtration, Intermittent, Less than 6 Hours Per Day (ICD-10-PCS; principal; 2019-05-24)
PROC: 5A1D70Z Performance of Urinary Filtration, Intermittent, Less than 6 Hours Per Day (ICD-10-PCS; 2019-05-27)
DX: A41.9 Sepsis, unspecified organism (principal); N18.6 End stage renal disease; R65.21 Severe sepsis with septic shock; I13.2 Hypertensive heart and chronic kidney disease with heart failure and with stage 5 chronic kidney disease, or end stage renal disease; Q60.0 Renal agenesis, unilateral; L03.116 Cellulitis of left lower limb; E87.1 Hypo-osmolality and hyponatremia; E11.52 Type 2 diabetes mellitus with diabetic peripheral angiopathy with gangrene; L97.129 Non-pressure chronic ulcer of left thigh with unspecified severity; M86.8X7 Other osteomyelitis, ankle and foot; E11.22 Type 2 diabetes mellitus with diabetic chronic kidney disease; E87.6 Hypokalemia; D63.1 Anemia in chronic kidney disease; E11.621 Type 2 diabetes mellitus with foot ulcer; L97.529 Non-pressure chronic ulcer of other part of left foot with unspecified severity; E66.9 Obesity, unspecified; E11.69 Type 2 diabetes mellitus with other specified complication; G47.10 Hypersomnia, unspecified; I99.8 Other disorder of circulatory system; J44.9 Chronic obstructive pulmonary disease, unspecified; F41.9 Anxiety disorder, unspecified; E11.65 Type 2 diabetes mellitus with hyperglycemia; Z82.0 Family history of epilepsy and other diseases of the nervous system; Z82.3 Family history of stroke; Z82.49 Family history of ischemic heart disease and other diseases of the circulatory system; Z82.5 Family history of asthma and other chronic lower respiratory diseases; Z99.2 Dependence on renal dialysis; Z83.3 Family history of diabetes mellitus; Z89.429 Acquired absence of other toe(s), unspecified side; Z68.33 Body mass index [BMI] 33.0-33.9, adult; Z74.01 Bed confinement status; Z76.5 Malingerer [conscious simulation]; Z91.19 Patient's noncompliance with other medical treatment and regimen
CPT/HCPCS: 36415; 71045; 73718; 75635; 80048; 80053; 80061; 80074; 80076; 80202; 81001; 82140; 82550; 82948; 83036; 83605; 83874; 84132; 84145; 84484; 84703; 85025; 85610; 85651; 85730; 86140; 87040; 87088; 90935; 93005; 93926; 93971; 99291; G0378; J0360; J1170; J1644; J1815; J1885; J2060; J2185; J2270; J2405; J3370; J3490; Q9967